=== PATIENT | female | born 1960 | race Caucasian/White ===

== ENCOUNTER 2017-01-13 08:26 | Day surgery (SDC) | payer MEDICARE, OTHER ==
--- NOTE | ~2017-01-13 | EGD ---
EGD REPORT [facility] [address] [id number] NAME: KRISTIE MAYO : [birth year] STATUS : [place] [facility] [place] PAT#: [id number] AGE: 56 ADM/REG DATE : 01/13/17 MR#: [id number] REPORT SERV DATE: 01/15/17 DICTATED BY: NITZA KYLE DATE: 01/15/17 REPORT STATUS : Draft TRANS[facility]IBED BY: [facility] DATE: 01/15/17 [facility] Center Patient Name: Kristie Mayo Date of : 1960 Attending MD: NITZA KYLE MD Procedure Date No Time: 01/13/2017 Procedure: Upper GI endoscopy Indications: Dysphagia, Gastro-esophageal reflux disease, Stricture of the esophagus, For therapy of esophageal stricture Medicines: Propofol per Anesthesia Complications: No immediate complications. Procedure: Pre-Anesthesia Assessment: - ASA Grade Assessment: III - A patient with severe systemic disease. After obtaining informed consent, the endoscope was passed under direct vision. Throughout the procedure, the patient's blood pressure, pulse, and oxygen saturations were monitored continuously. The GIF [id number] was introduced through the mouth, and advanced to the second part of duodenum. The upper GI endoscopy was accomplished without difficulty. The patient tolerated the procedure well. Findings: Moderately severe esophagitis with no bleeding was found in the entire esophagus. A benign-appearing, intrinsic moderate stenosis was found in the middle third of the esophagus and was traversed. A guidewire was placed and the scope was withdrawn. Dilation was performed with a Savary dilator with mild resistance at 38 Fr, mild resistance at 42 Fr and mild resistance at 45 Fr. The esophagus looked satisfactory post dilation A small hiatus hernia was present. Seen on retroflexion, done prior to dilation A medium amount of food (residue) was found in the gastric body. The entire examined stomach was normal. The examined duodenum was normal. Impression: - Moderately severe reflux esophagitis. - Benign-appearing esophageal stricture. Dilated. - Hiatus hernia. - A medium amount of food (residue) in the stomach. - Normal stomach. - Normal examined duodenum. Recommendation: - Patient has a contact number available for EGD REPORT [address] [id number] NAME: KRISTIE MAYO : [birth year] STATUS : [place] [facility] [place] PAT#: [id number] AGE: 56 ADM/REG DATE : 01/13/17 MR#: [id number] REPORT SERV DATE: 01/15/17 DICTATED BY: NITZA KYLE DATE: 01/15/17 REPORT STATUS : Draft TRANSCRIBED BY: [employer] DATE: 01/15/17 emergencies. The signs and symptoms of potential delayed complications were discussed with the patient. Return to normal activities tomorrow. Written discharge instructions were provided to the patient. - Clear liquid diet today. - diet is clear liquid today, full liquid tomorrow, soft mushy food the next day, and resume usual diet the day after that. - Repeat the upper endoscopy in 1 week for retreatment. - Return to my office as previously scheduled. - Discharge patient to home. Procedure Code(s): --- Professional --- 26910, Esophagogastroduodenoscopy, flexible, transoral; with insertion of guide wire followed by passage of dilator(s) through esophagus over guide wire Diagnosis Code(s): --- Professional --- K21.0, Gastro-esophageal reflux disease with esophagitis K22.2, Esophageal obstruction K44.9, Diaphragmatic hernia without obstruction or gangrene R13.10, Dysphagia, unspecified CPT copyright 2013 [employer] [place] [employer]. All rights reserved. The codes documented in this report are preliminary and upon medical device review may be revised to meet current compliance requirements. Nitza Kyle MD NITZA KYLE MD 01/13/2017 12:52 PM This report has been signed electronically. Number of Addenda: 0 Note Initiated On: 01/13/2017 12:26 PM Scope Withdrawal Time 0 hours 0 minutes 0 seconds [id number] [place] [address]
[~2017-01-13 08:26] MED LIST: ASABAYER PO; ATARAX50B PO; ATIVAN2 MG PO; CELEBREX1 PO; COUMADIN7.5 MG PO; DIL4TAB PO; EFFEXOR XR150 MG PO; FLEX PO; IRON PO; KLONOPIN PO; Klonopin; LOPID6 PO; MSCONTIN PO; NEUR600 PO; OXYCOD PO; OXYCON10 PO; PERCOCET1 TA4 PO; PR25 PO; SEROQUEL300 MG PO; SOMATAB PO; TRAZODONE300 MG PO; VIST25 PO; VIST50 PO; ZANAFLEX; ZANAFLEX 4 MG TA4 MG PO; ZYPREXA ZYDI20 MG PO
== END 2017-01-13 23:59 | disposition home health service (06) ==
LOC: DMU 08:26
PROVIDERS: Internal Medicine Gastroenterology
PROC: 0D728ZZ Dilation of Middle Esophagus, Via Natural or Artificial Opening Endoscopic (ICD-10-PCS; principal; 2017-01-13 09:00)
DX: K22.2 Esophageal obstruction (principal); K44.9 Diaphragmatic hernia without obstruction or gangrene; K21.0 Gastro-esophageal reflux disease with esophagitis; J45.909 Unspecified asthma, uncomplicated; F41.9 Anxiety disorder, unspecified; F31.9 Bipolar disorder, unspecified; G62.9 Polyneuropathy, unspecified; E66.9 Obesity, unspecified; Z88.1 Allergy status to other antibiotic agents; Z88.8 Allergy status to other drugs, medicaments and biological substances; Z79.899 Other long term (current) drug therapy